=== PATIENT | male | born 1955 | race Caucasian/White ===

== ENCOUNTER 2018-08-13 17:42 | Inpatient (IN) | payer SELFPAY ==
[2018-08-13] VITALS (15 sets, daily range): BP systolic 124–209; BP diastolic 98–126; PULSE 69–101; RESP 13–97; TEMP 36.5–37.2; O2SAT 93–99; BMI 29.8; BMI 31.3
--- NOTE | 2018-08-13 17:50 | RAD_ITS ---
STUDY: X-RAY CHEST REASON FOR EXAM: Male, 62 years old. Chest pain and pressure. TECHNIQUE: Portable chest. COMPARISON: None. FINDINGS: The lungs are clear and expanded. There is no demonstrated pleural abnormality. Normal size heart. Normal mediastinum and nga. Normal visualized pulmonary arteries. Normal visualized aortic arch and descending thoracic aorta. Normal visualized thoracic spine. Normal visualized ribs, clavicles, and shoulders. There is no demonstrated abnormality of the visualized soft tissue structures of the upper abdomen. RAD/Chest 1 View (Portable) IMPRESSION: Normal x-ray examination of the chest. Electronically Signed: Sapphire Britton MD at 18:18 EDT Tel , Service support ,
[2018-08-13] MEDS: TICAGRELOR 90 MG TABLET 180 MG PO (18:00)
[2018-08-13] MEDS: Aspirin 81 MG TAB.CHEW 324 MG PO (18:00)
[2018-08-13] MEDS: Heparin Injection (Vial) 5,000 UNIT/ML VIAL 4000 UNIT IV (18:00)
--- NOTE | 2018-08-13 18:01 | EKG12_ITS ---
Test Reason : CHEST PAIN Blood Pressure : / mmHG Vent. Rate : 085 BPM Atrial Rate : 085 BPM P-R Int : 154 ms QRS Dur : 100 ms QT Int : 366 ms P-R-T Axes : 059 016 003 degrees QTc Int : 435 ms Normal sinus rhythm Low voltage QRS Anteroseptal infarct , possibly acute ACUTE VA / STEMI Abnormal ECG Confirmed by GILDA FOY, CHERIE ([id number]), map editor ROHAN JOHNSON ([id number]) on 08/15/2018 3:24:26 PM Referred By: Belle Ag Confirmed By:CHERIE VO MD
--- NOTE | 2018-08-13 18:05 | ED.VISSUMM ---
- ER Visit Summary Date of Service: 08/13/18 Chief Complaint: Chest pain History of Present Illness: The patient is a 62 M presenting with chest pain. Patient states it started 1 hour ago while at work. He states he does exert himself while at work. He has had nausea and vomiting. He complains of intermittent diaphoresis. He has shortness of breath. He states the pain is midsternal and radiates to his left arm. He states he had 3 shorter episodes of chest pain which were not as severe earlier in the week. He has a history of hypertension. He is not a smoker. His father had an PR at age 60. Physical Examination: Vitals are stable. Patient is afebrile. Alert no acute distress. HEENT exam is unremarkable. Neck is supple. Lungs are clear and equal bilaterally. Heart is regular rate and rhythm. Abdomen is soft nontender nondistended. Extremities are unremarkable. Skin is warm and dry. No focal neurologic deficit. Remainder of exam is unremarkable. Emergency Department Course and Treatment: Patient was given aspirin on arrival. EKG shows ST elevation anterior laterally with inferior depression. He was given heparin and Brilinta. Discussed with Dr. Ag, patient will be taken to the cardiac Manager Site. Disposition: Admission Impression: STEMI This note was generated with [employer] dictation software. It may contain incorrect words, spelling, and punctuation that were not noted in review of the chart prior to signing ED Disposition - Plan for ED Patient: Chief Complaint: Chest Pain Referrals: Richy Bucio [Primary Care Provider] -
[2018-08-13] MEDS: Morphine 4 MG/ML Syringe IV (18:07)
[2018-08-13] MEDS: Ondansetron 4 MG/2 ML Vial IV (18:07)
--- NOTE | 2018-08-13 18:08 | ED.DCSUM_ITS ---
- ER Visit Summary Date of Service: 08/13/18 Chief Complaint: Chest pain History of Present Illness: The patient is a 62 M presenting with chest pain. Patient states it started 1 hour ago while at work. He states he does exert himself while at work. He has had nausea and vomiting. He complains of interm ittent diaphoresis. He has shortness of breath. He states the pain is midsternal and radiates to his left arm. He states he had 3 shorter episodes of chest pain which were not as severe earlier in the week. He has a history of hypertension. He is not a smoker. His father had an PA at age 60. Physical Examination: Vitals are stable. Patient is afebrile. Alert no acute distress. HEENT exam is unremarkable. Neck is supple. Lungs are clear and equal bilaterally. Heart is regular rate and rhythm. Abdomen is soft nontender nondistended. Extremities are unremarkable. Skin is warm and dry. No focal neurologic deficit. Remainder of exam is unremarkable. Emergency Department Course and Treatment: Patient was given aspirin on arrival. EKG shows ST elevation anterior laterally with inferior depression. He was given heparin and Brilinta. Discussed with Dr. Ag, patient will be taken to the cardiac Salon Leader. Disposition: Admission Impression: STEMI This note was generated with [employer] dictation software. It may contain incorrect words, spelling, and punctuation that were not noted in review of the chart prior to signing ED Disposition - Plan for ED Patient: Chief Complaint: Chest Pain Referrals: Richy Bucio [Primary Care Provider] -
[2018-08-13 18:09] LABS: Absolute Lymphocyte Count 2.13 X10^3/ul (0.83-4.51); Absolute Neutrophil Count 7.2 X10^3/uL (2.0-7.7); Basophil# 0.03 X10^3/uL; Basophil% 0.3 % (0-1); Eosinophil# 0.11 X10^3/uL; Eosinophils% 1.1 % (0-5); Hematocrit 47.7 % (40-54); Lymphocyte # 2.13 X10^3/ul (4.0); Lymphocyte % 20.7 % (19-41); Mean Corp Hgb Conc 33.5 g/gl (32-36); Mean Corpuscular Hgb 30.4 pg (27.0-32.0); Mean Corpuscular Volume 90.5 fL (80-94); Monocyte# 0.77 X10^3/uL; Monocyte% 7.5 % (0-10); Neutrophil # 7.22 X10^3/uL (2.7-7.7); Neutrophil % 70.3 % (47-70); Platelet Count 278 K/mm3 (150-450); RBC Distribution Width CV 13.2 % (11.6-14.6); RBC Distribution Width SD 43.2 fl (35.1-43.9); Red Blood Count 5.27 M/mm3 (4.6-6.2); White Blood Count 10.3 K/mm3 (4.4-11.0)
[2018-08-13 18:10] LABS: POSITIVE COUNT NO; POSITIVE DIFFERENTIAL NO; POSITIVE MORPHOLOGY NO
--- NOTE | 2018-08-13 18:14 | NURSING ---
DR STEVE IN ROOM
[2018-08-13 18:17] LABS: International Normalized Ratio 0.9; Prothrombin Time (Protime)PT. 12.6 SECONDS (11.7-14.9)
[2018-08-13 18:18] LABS: Partial Thromboplast Time 27.5 Seconds (24.1-36.2)
--- NOTE | 2018-08-13 18:27 | CON.PCM_ITS ---
Problem List (1) STEMI (ST elevation myocardial infarction) Status: Acute Reason for Consult Date of Consultation: 08/13/18 History of Present Illness: The patient is a 62 year old M with past medical history significant for hypertension. Noncompliant with medications for the last 6 months. Patient presented to the emergency room with complaints of anterior chest discomfort radiating to the back. 1 hour duration. Shortness of breath initially. P resently no shortness of breath. No nausea or vomiting. EKG done in the emergency room showed changes consistent with acute anterolateral myocardial infarction. A STEMI alert was called. Per patient, he has had a few episodes of chest discomfort the last week. According to him, those episodes lasted 10-15 minutes and resolved on their own. Denies any exertional angina. However for the past few days, he has been feeling increasingly tired. No orthopnea or PND. [] Past Medical History Allergies/Adverse Reactions: Allergies No Known Allergies Allergy (Verified 08/13/18 17:58) Home Medications: Ambulatory Orders Medication Instructions Recorded NK 08/13/18 Smoking Status: Never smoker Review of Systems - Review of Systems General: Denies: Fever, Fatigue, Malaise, Anorexia, Weight Loss HEENT: Denies: Head Aches Cardiovascular: Reports: Chest Discomfort at Rest, Shortness of Breath. Denies: Orthopnea, PND Gastrointestinal: Denies: Indigestion, Abdominal Discomfort, Hematemesis, Melena Neurological: Denies: History of TIA, History of CVA Endocrine: Denies: Heat Intolerance, Cold Intolerance Hematologic/ Lymphatic: Denies: Easy Brusing, Easy Bleeding Subjectve: Appears mildly anxious Objective: Vital Signs Temp Pulse Resp BP Pulse Ox 98.9 F 85 18 184/111 H 93 08/13/18 17:43 08/13/18 18:18 08/13/18 17:59 08/13/18 18:18 08/13/18 18:11 Oxygen Flow Rate (L/min) 2 Oxygen Delivery Method Nasal Cannula Weight: 99.79 kg Body Mass Index (BMI) 29.8 General: Awake, Alert, Oriented x 3 HEENT: Atraumatic, Normocephalic Oral: Moist Mucosa Neck: Supple, No JVD Lungs: Diminished Eugenio Bases Cardiovascular: Regular Rhythm, Normal S1, Normal S2 Vascular: No Carotid Bruits Abdomen: Bowel Sounds Present, Soft Neurological: No Focal Motor or Sensory Deficit 08/13/18 17:45: WBC 10.3, RBC 5.27, Hgb 16.0, Hct 47.7, MCV 90.5, MCH 30.4, MCHC 33.5, RDW 13.2, RDW Differential 43.2, Plt Count 278, MPV 10.0, Immature Gran % (Auto) 0.100, Neut % (Auto) 70.3 H, Lymph % (Auto) 20.7, [place] % (Auto) 7.5, Eos % (Auto) 1.1, Baso % (Auto) 0.3, Absolute Neuts (auto) 7.2, Total Counted Not Reportable 08/13/18 17:45: PT 12.6, INR 0.9, APTT 27.5 Rhythm: Normal sinus rhythm EKG: EKG shows normal sinus rhythm. Changes consistent with acute anterolateral myocardial infarction are noted ECHO: Stress Test: Cardiac Cath: PCI: CT Surgery: Holter monitor: EPS: PPM: CXR: Chest CT Scan: Assessment/Plan 1. ST elevation myocardial infarction. Recommend emergent coronary angiography with possible revascularization. Risks benefits and alternatives were explained to the patient. He understands and wishes to proceed. 2. Loaded with aspirin and ticagrelor. 3. Start on nitroglycerin 4. Hypertension. Uncontrolled. Start on nitroglycerin. 5. Lipid status unknown. Will start on statins 6. Counseled regarding the importance of compliance with medications Further recommendations will follow results of cardiac catheterization
[2018-08-13 18:31] LABS: Anion Gap 6 (5-15); BUN 13 mg/dL (7-18); BUN/Creat Ratio 11.5 RATIO (10-20); Calcium,Total 9.2 mg/dL (8.5-10.1); Chloride 102 mmol/L (98-107); Creatinine, Serum 1.13 mg/dL (0.70-1.30); EST Glomerular Filtration Rate 70 mL/min (>60); Est Glom Filt Rate - Afr Amer 85 mL/min (>60); Glucose 156 mg/dL (74-106); Sodium Level 137 mmol/L (136-145)
[2018-08-13 19:56] LABS: ACT Activated Clotting Time 147 sec (74-137)
[2018-08-13 19:56] LABS: ACT Activated Clotting Time 274 sec (74-137)
--- NOTE | 2018-08-13 20:09 | ECHOD_ITS ---
Reason For Study: S/P NE Procedure This was a 2D Doppler, Color Flow transthoracic echocardiogram. Exam performed portable in patient room. Left Ventricle Normal LV size. Moderate concentric left ventricular hypertrophy. The estimated ejection fraction is 53 %. Mild to moderate segmental systolic dysfunction (see wall motion). Stage 1 diastolic dysfunction. Mid-Anterior : Hypokinetic. Mid-anteroseptal : Mildly hypokinetic. Grady : Severely Hypokinetic. The rest of the wall segments are normal. Right Ventricle Normal RV size. Normal systolic function. Atria Normal left atrium. Normal right atrium. Mitral Valve Normal mitral valve. Tricuspid Valve Normal tricuspid valve. Mild (1+) tricuspid valve insufficiency. Pulmonary artery systolic pressure is 22 mmHg. Aortic Valve Trisinus/trileaflet aortic valve. Mild focal aortic valve calcification. Pulmonic Valve Normal pulmonic valve. Great Vessels Normal aortic root. The pulmonary artery is normal size. Normal inferior vena cava. Pericardium/Pleural No pericardial effusion. MMode/2D Measurements & Calculations LVIDd: 5.3 cm IVSd: 1.5 cm Ao root diam: 3.8 cm LVIDs: 3.7 cm LVPWd: 1.5 cm LA dimension: 4.2 cm RVDd: 3.0 cm FS: 29.8 % LAV(MOD-bp): 38.0 ml LA A4 area: 14.7 cm2 RA A4 area: 16.1 cm2 LAV(MOD-bp) Indexed: 17.2 ml/m2 LAV(MOD-sp2): 41.4 ml LAV(MOD-sp4): 34.2 ml Time Measurements MV dec time: 0.21 sec Doppler Measurements & Calculations MV E max refugio: 51.4 cm/sec Lat Peak E' Refugio: 6.2 cm/sec Med Peak E' Refugio: 5.9 cm/sec MV A max refugio: 69.9 cm/sec E/E' lat: 8.3 E/E' med: 8.8 MV E/A: 0.74 Ao V2 max: 131.8 cm/sec LV V1 max: 114.9 cm/sec TR max refugio: 210.7 cm/sec Ao max P.0 mmHg LV V1 max P.3 mmHg TR max P.8 mmHg Interpretation Summary Normal LV size. Moderate concentric left ventricular hypertrophy. The estimated ejection fraction is 53 %. Mild to moderate segmental systolic dysfunction (see wall motion). Stage 1 diastolic dysfunction. Pulmonary artery systolic pressure is 22 mmHg. Ordering Physician: Belle Ag Referring Physician: THOMAS YAN Performed By: Myriam Corado RDCS, RVT
[2018-08-13] MEDS: 0.9% Normal Saline 1,000 ML 75 ML IV (20:15)
--- NOTE | 2018-08-13 20:40 | HP.PCM_ITS ---
Problem List (1) STEMI (ST elevation myocardial infarction) Status: Acute History of Present Illness Date of Admission: 08/13/18 Chief Complaint: chest pain The patient is a 62 year old M with a PMH of HTN (noncompliant with his meds). He was admitted with a complaint of chest pain for the past few days. Pain was pressurelike, with associated diaphoresis, dizziness and lightheadedness. He had had such pain several times this week but did not think much of it and thought it would go away on its own. However pain recurred today as he was leaving work and worsened when he got home. He therefore decided to bring himself to the ED where he was found to have acute ST elevation WI in the anterior lateral leads. He he was emergently rushed to the laundry laborer where he was found to have total occlusion of the LAD and had a drug-eluting stent placed in the proximal and mid LAD. Patient was seen and examined after he had the stents put in. He had no complaints and felt well and denied any fever or chills, any chest pain, shortness of breath, any abdominal pain, any diarrhea vomiting..[] Past Medical History Allergies No Known Allergies Allergy (Verified 08/13/18 17:58) Home Medications: Ambulatory Orders Medication Instructions Recorded NK 08/13/18 Surgical History: no surgical history Psychiatric History: No pertinent psych hx Lives: Spouse/ Significant Other Smoking Status: Never smoker Tobacco Use: Non-smoker Alcohol: None Drugs: Marijuana - *Family History Paternal History Items: High Cholesterol, Heart Disease Sibling History Items: High Cholesterol, Heart Disease Review of Systems Constitutional: Denies: Chills, Fever, Malaise, Weakness, Weight Change Eyes: Denies: Blurred vision HEENT: Denies: Head Aches, Sinus Congestion, Sinus Drainage Cardiovascular: Reports: Light Headedness. Denies: Chest Pain - chest pain now resolved, Chest Pressure, Chest Tightness, Edema, Palpitations Respiratory: Denies: Cough, Pleuritic Pain, Shortness of Breath, Shortness of breath at rest, Sputum production Gastrointestinal: Denies: Abdominal Pain, Nausea, Vomiting Genitourinary: Denies: Dysuria Musculoskeletal: Denies: Joint Pain, Joint Tenderness Skin: Denies: Rash, Wounds Neurological: Denies: Numbness, Tingling, Focal weakness Psychiatric: Denies: Anxiety, Depression, Homicidal Ideations, Suicidal Ideations Hematologic/ Lymphatic: Denies: Easy Bruising, Easy Bleeding VTE Information - Inpt Only VTE Present on Admission: No VTE Mechan Device Prophylaxis: None VTE Pharm Prophylaxis ordered?: Yes Patient Problems: Active and Suspected Problems (Last Updated 08/13/18 @ 18:25 by Belle gA MD) STEMI (ST elevation myocardial infarction) (Acute) - Physical Exam General: Alert, Oriented x3, Cooperative, No apparent distress HEENT: Atraumatic, PERRLA, EOMI, Normocephalic Oral: Moist Mucosa Neck: Supple, No JVD, Negative Carotid Bruits Lungs: Clear to auscultation, Normal air movement, No rhonchi, No wheeze, No rales Cardiovascular: Regular rate, Regular Rhythm, Normal S1, Normal S2, No murmurs Abdomen: Bowel Sounds Present, Soft, Non Tender, Non-Distended, No Hepato- splenomegaly Extremities: No clubbing, No cyanosis, No edema, Capillary Refill Less than 3 Seconds, - - cath site at right radial area with compression dressing Skin: No rashes, No breakdown Musculoskeletal: No Tenderness to Palpation of Joints or Extremities Lymphatic: No Cervical, Supraclavicular, or Inguinal Adenopathy Neurological: Cranial nerves II-XII grossly intact, Neuro grossly intact, Motor Exam 5/5 strength throughout Psych/Mental Status: Normal Affect, Appropriate, Alert and oriented to time, place, person, mood and affect Vital Signs Temp Pulse Resp BP Pulse Ox 98.9 F 85 18 184/111 H 93 08/13/18 17:43 08/13/18 18:18 08/13/18 17:59 08/13/18 18:18 08/13/18 18:11 Oxygen Flow Rate (L/min) 2 Oxygen Delivery Method Nasal Cannula Weight: 231 lb 0.711 oz Body Mass Index (BMI) 31.3 Laboratory Tests Past 24 Hrs 08/13/18 08/13/18 08/13/18 17:45 17:45 17:45 WBC 10.3 RBC 5.27 Hgb 16.0 Hct 47.7 MCV 90.5 MCH 30.4 MCHC 33.5 RDW 13.2 RDW Differential 43.2 Plt Count 278 MPV 10.0 Immature Gran % (Auto) 0.100 Neut % (Auto) 70.3 H Lymph % (Auto) 20.7 [place] % (Auto) 7.5 Eos % (Auto) 1.1 Baso % (Auto) 0.3 Absolute Neuts (auto) 7.2 Absolute Lymphs (auto) 2.13 Total Counted Not Reportable PT 12.6 INR 0.9 APTT 27.5 Activated Clotting Time Sodium 137 Potassium 4.0 Chloride 102 Carbon Dioxide 29.0 Anion Gap 6 BUN 13 Creatinine 1.13 Estim Creat Clear Calc 76.30 Est GFR (MDRD) Af Amer 85 Est GFR (MDRD) Non-Af 70 BUN/Creatinine Ratio 11.5 Glucose 156 H Calcium 9.2 Troponin I 1.600 H* 08/13/18 08/13/18 18:42 19:46 WBC RBC Hgb Hct MCV MCH MCHC RDW RDW Differential Plt Count MPV Immature Gran % (Auto) Neut % (Auto) Lymph % (Auto) [place] % (Auto) Eos % (Auto) Baso % (Auto) Absolute Neuts (auto) Absolute Lymphs (auto) Total Counted PT INR APTT Activated Clotting Time 147 H 274 H Sodium Potassium Chloride Carbon Dioxide Anion Gap BUN Creatinine Estim Creat Clear Calc Est GFR (MDRD) Af Amer Est GFR (MDRD) Non-Af BUN/Creatinine Ratio Glucose Calcium Troponin I Diagnostic Data Chest X-Ray 08/13/18 17:50 IMPRESSION: Normal x-ray examination of the chest. Electronically Signed: Sapphire Britton MD at 18:18 EDT Tel , Service support , Assessment/Plan All Active Problems (Last Updated 08/13/18 @ 18:25 by Belle Ag MD) STEMI (ST elevation myocardial infarction) (Acute) 62 y/o male admitted with a complaint of chest pain 1. STEMI s/p stents to LAD x 2 * today is POD 0. admitted with severe pressure like chest pain, and found to have anterolateral STEMI * troponin was 1.6 on admisison * on aspirin 81mg daily, coreg 3.125mg bid, lisinopril 5mg daily and SL nitroglycerin prn as well as brilinta 90 mg bid * on atorvastatin 40mg qhs * cardiology on board 2. Hypertension * has not been compliant with his meds; doesnt remember what medication he was on * started on PO carvedilol 3.125mg bid and lisinopril 5mg daily * 3. Hyperlipidemia: started on atorvastatin. check lipid panel DVT prophylaxis; SCDs; received bolus of heparin in ED prior to going for cath. To start heparin for DVT prophylaxis tomorrow Code status: full code. * Patient counseled about differences between DNR CCA, DNR CCA and full code. Patient elects to be full code. * Total face to face time 17 mins Code Visit Inpatient E&M: 50788 Init Hosp L3 Procedures: 65829 Advncd Care Plan 30 Min
[2018-08-13] MEDS: TICAGRELOR 90 MG TABLET PO (21:53)
[2018-08-13] MEDS: Atorvastatin Calcium 10 MG Tablet 5 MG PO (21:53)
[2018-08-13] MEDS: Carvedilol 3.125 MG TABLET PO (21:53)
[2018-08-13] MEDS: Lisinopril 5 MG Tablet PO ×2 (22:42→23:27)
[2018-08-14] VITALS (27 sets, daily range): BP systolic 109–164; BP diastolic 69–113; PULSE 70–95; RESP 11–30; TEMP 36.6–37.2; O2SAT 91–97
[2018-08-14] MEDS: hydrALAZINE 20 MG/ML Vial 10 MG IV (01:05)
[2018-08-14] MEDS: 0.9% NaCl Peripheral Flush Adult/Peds IV (01:05)
[2018-08-14 04:22] LABS: Hematocrit 43.3 % (40-54); Hemoglobin 14.9 g/dl (13.0-16.5); Mean Corp Hgb Conc 34.4 g/gl (32-36); Mean Corpuscular Hgb 30.8 pg (27.0-32.0); Mean Corpuscular Volume 89.6 fL (80-94); Mean Platelet Vol. 9.5 fl (6.2-12.0); Platelet Count 257 K/mm3 (150-450); RBC Distribution Width CV 13.3 % (11.6-14.6); RBC Distribution Width SD 43.3 fl (35.1-43.9); Red Blood Count 4.83 M/mm3 (4.6-6.2); White Blood Count 11.7 K/mm3 (4.4-11.0)
[2018-08-14 04:46] LABS: Scan Indicated on CBC? Y/N NO
[2018-08-14 04:51] LABS: ALB/GLOB Ratio 0.9 RATIO (0.9-2.4); AST(SGOT) 186 U/L (15-37); Alanine Aminotransfer ALT/SGPT 44 U/L (16-61); Albumin, Serum 3.3 g/dL (3.2-5.0); Alkaline Phosphatase 76 U/L (45-117); Anion Gap 10 (5-15); BUN 8 mg/dL (7-18); Calcium,Total 8.5 mg/dL (8.5-10.1); Chloride 101 mmol/L (98-107); Cholesterol 169 mg/dL (200); EST Glomerular Filtration Rate 105 mL/min (>60); Est Glom Filt Rate - Afr Amer 127 mL/min (>60); Estimated Creatinine Clearance 107.78 ml/min; Globulin 3.8 g/dL (2.2-4.2); Glucose 150 mg/dL (74-106); High Density Lipoprotein 28 mg/dL; Potassium 3.5 mmol/L (3.5-5.1); Protein, Total 7.1 g/dL (6.4-8.2); Sodium Level 139 mmol/L (136-145); Triglycerides 298 mg/dL; Very Low Density Lipoprotein 60 mg/dL (5-40)
--- NOTE | 2018-08-14 07:49 | PCM.PN.HOSP ---
Patient Problems: Active and Suspected Problems (Last Updated 08/13/18 @ 18:25 by Belle Ag MD) STEMI (ST elevation myocardial infarction) (Acute) Subjective: Patient was seen and examined in the ICU. Admitted with STEMI last night for having anterior chest discomfort for about an hour duration and about 2-3 times last week lasting for about 10-15 minutes. EKG showed anterior lateral wall acute TN consistent with STEMI. STEMI alert was called and subsequently patient had emergent cardiac cath and 2 stents were placed in LAD. Currently, patient denies chest discomfort/pain, shortness of breath or missed heartbeat/arrhythmia Vitals/I&O's: Vital Signs Temp Pulse Resp BP Pulse Ox 97.9 F 95 22 H 127/89 H 97 08/14/18 00:00 08/14/18 07:00 08/14/18 07:00 08/14/18 07:00 08/14/18 07:00 Oxygen Flow Rate (L/min) 1 Oxygen Delivery Method Nasal Cannula Weight: 229 lb 15.074 oz Body Mass Index (BMI) 31.3 Intake and Output for Last 24 Hours 08/12/18 08/13/18 08/14/18 23:59 23:59 23:59 Intake Total 1252 / 1252 Output Total 1525 / 1525 Balance -273 / -273 General: Alert, Oriented x3, Cooperative HEENT: Atraumatic, PERRLA, EOMI, Normocephalic Neck: Supple, No JVD, Negative Carotid Bruits Lungs: Clear to auscultation, Normal air movement Cardiovascular: Regular rate, Regular Rhythm, Normal S1, Normal S2, No murmurs Abdomen: Bowel Sounds Present, Soft, Non Tender, Non-Distended Extremities: No edema, Capillary Refill Less than 3 Seconds Skin: No rashes, No breakdown Musculoskeletal: No Tenderness to Palpation of Joints or Extremities, Arthritic Changes Neurological: Cranial nerves II-XII grossly intact Psych/Mental Status: Normal Affect, Appropriate Laboratory Results 08/13/18 17:45: WBC 10.3, RBC 5.27, Hgb 16.0, Hct 47.7, MCV 90.5, MCH 30.4, MCHC 33.5, RDW 13.2, RDW Differential 43.2, Plt Count 278, MPV 10.0, Immature Gran % (Auto) 0.100, Neut % (Auto) 70.3 H, Lymph % (Auto) 20.7, [place] % (Auto) 7.5, Eos % (Auto) 1.1, Baso % (Auto) 0.3, Absolute Neuts (auto) 7.2, Absolute Lymphs (auto) 2.13, Total Counted Not Reportable 08/13/18 17:45: PT 12.6, INR 0.9, APTT 27.5 08/13/18 17:45: Sodium 137, Potassium 4.0, Chloride 102, Carbon Dioxide 29.0, Anion Gap 6, BUN 13, Creatinine 1.13, Estim Creat Clear Calc 76.30, Est GFR (MDRD) Af Amer 85, Est GFR (MDRD) Non-Af 70, BUN/Creatinine Ratio 11.5, Glucose 156 H, Calcium 9.2, Troponin I 1.600 H* 08/13/18 18:42: Activated Clotting Time 147 H 08/13/18 19:46: Activated Clotting Time 274 H 08/14/18 04:10: WBC 11.7 H, RBC 4.83, Hgb 14.9, Hct 43.3, MCV 89.6, MCH 30.8, MCHC 34.4, RDW 13.3, RDW Differential 43.3, Plt Count 257, MPV 9.5 08/14/18 04:10: Sodium 139, Potassium 3.5, Chloride 101, Carbon Dioxide 28.0, Anion Gap 10, BUN 8, Creatinine 0.80, Estim Creat Clear Calc 107.78, Est GFR (MDRD) Af Amer 127, Est GFR (MDRD) Non-Af 105, BUN/Creatinine Ratio 10.0, Glucose 150 H, Calcium 8.5, Total Bilirubin 0.60, AST 186 H, ALT 44, Alkaline Phosphatase 76, Total Protein 7.1, Albumin 3.3, Globulin 3.8, Albumin/Globulin Ratio 0.9, Triglycerides 298 H, Cholesterol 169, LDL Cholesterol 81, VLDL Cholesterol 60 H, HDL Cholesterol 28 L Current Medications Aspirin (Ecotrin) 81 mg PO DAILY@0800 [facility] Atorvastatin Calcium (Lipitor) 5 mg PO QHS [facility] Last Admin: 08/13/18 21:53 Dose: 5 mg Atropine Sulfate () 0.5 mg IV UD PRN PRN Reason: HR <50 bpm Carvedilol (Coreg) 3.125 mg PO BID [facility] Last Admin: 08/13/18 21:53 Dose: 3.125 mg Nitroglycerin/Dextrose 25 mg/ (N/A) 250 mls @ 12 mls/hr IV .[id number] [facility] Last Admin: 08/13/18 20:15 Dose: Not Given Sodium Chloride () 1,000 mls @ 75 mls/hr IV .[id number] [facility] Stop: 08/14/18 09:14 Last Admin: 08/13/18 20:15 Dose: 75 mls/hr Sodium Chloride () 250 mls @ 15 mls/hr IV .[id number] PRN PRN Reason: SALINE FLUSH Influenza Virus Vaccine Quadrival (Fluarix/Fluzone) 0.5 ml IM .ONCE ONE Stop: 08/14/18 10:01 Lisinopril (Zestril) 5 mg PO DAILY [facility] Last Admin: 08/13/18 22:42 Dose: 5 mg Nitroglycerin (Nitrostat) 0.4 mg SUBLINGUAL Q5M PRN PRN Reason: CARDIAC/CHEST PAIN Sodium Chloride () 500 ml IV BOLUS PRN PRN Reason: VASO-VAGAL PROTOCOL Sodium Chloride () 5 - 30 ml IV UD PRN PRN Reason: SALINE FLUSH Last Admin: 08/14/18 01:05 Dose: 10 ml Ticagrelor (Brilinta) 90 mg PO BID [facility] Last Admin: 08/13/18 21:53 Dose: 90 mg Medical Necessity - Tobacco Use Smoking Status: Never smoker Tobacco Use: Non-smoker Assessment/Plan All Active Problems (Last Updated 08/13/18 @ 18:25 by Belle Ag MD) STEMI (ST elevation myocardial infarction) (Acute) This is a 62-year-old gentleman with history of hypertension was admitted for anterior chest pain consistent with anterolateral STEMI. STEMI alert was called and patient had emergent cath. 1. STEMI: Patient had emergent cath with PCI in LAD within time window of STEMI. No significant arrhythmia on the pvc monitor. On Brilinta, Coreg, lisinopril and atorvastatin. 2. Hypertension: Blood pressure was in the 150s-160. Currently, 127/89. Patient was on nitroglycerin drip discontinued. continue lisinopril. 3. Dyslipidemia: Triglyceride 298, HDL 28. LDL 81. on atorvastatin. 4. DVT prophylaxis: Bilateral SCDs. Resume heparin after 24 hours of cath Laboratory Results 08/14/18 04:10: WBC 11.7 H, RBC 4.83, Hgb 14.9, Hct 43.3, MCV 89.6, MCH 30.8, MCHC 34.4, RDW 13.3, RDW Differential 43.3, Plt Count 257, MPV 9.5 08/14/18 04:10: Sodium 139, Potassium 3.5, Chloride 101, Carbon Dioxide 28.0, Anion Gap 10, BUN 8, Creatinine 0.80, Estim Creat Clear Calc 107.78, Est GFR (MDRD) Af Amer 127, Est GFR (MDRD) Non-Af 105, BUN/Creatinine Ratio 10.0, Glucose 150 H, Calcium 8.5, Total Bilirubin 0.60, AST 186 H, ALT 44, Alkaline Phosphatase 76, Total Protein 7.1, Albumin 3.3, Globulin 3.8, Albumin/Globulin Ratio 0.9 Triglycerides 298 H, Cholesterol 169, LDL Cholesterol 81, VLDL Cholesterol 60 H, HDL Cholesterol 28 L Code Visit Inpatient E&M: 71089 Subs Hosp L3
[2018-08-14] MEDS: TICAGRELOR 90 MG TABLET PO ×2 (09:46→20:58)
[2018-08-14] MEDS: Aspirin E.C. 81 MG Tablet PO (09:46)
[2018-08-14] MEDS: Lisinopril 5 MG Tablet PO (09:47)
[2018-08-14] MEDS: Carvedilol 3.125 MG TABLET PO (09:47)
--- NOTE | 2018-08-14 10:00 | EKG12_ITS ---
Test Reason : AM EKG Blood Pressure : / mmHG Vent. Rate : 080 BPM Atrial Rate : 080 BPM P-R Int : 156 ms QRS Dur : 106 ms QT Int : 362 ms P-R-T Axes : 057 070 045 degrees QTc Int : 417 ms Normal sinus rhythm Low voltage QRS Poor R wave progression Anterior CT, age undetermined, cannot be excluded Confirmed by NIKKO FOY, SCAR ([id number]), editor newspaper ROHAN JOHNSON ([id number]) on 08/18/2018 12:03:46 PM Referred By: Belle Ag Confirmed By:SCAR EL MD
[2018-08-14] MEDS: HYDROCHLOROTHIAZIDE 12.5 MG CAPSULE PO (13:54)
[2018-08-14 13:59] LABS: Hemoglobin A1c 6.2 % (4.2-6.3)
--- NOTE | 2018-08-14 17:30 | CL.I_ITS ---
Patient Name: NEISHA RIDLEY Study Date: 08/13/2018 Performing: Belle Ag MD Ht: 72.04 inches 183 cm : 1955 Wt: 220.46 lbs 100 kg Age: 62 Gender: male BSA: 2.22 PROCEDURE(S) PERFORMED [id number]/COR/LV HK95-FME, ANGEL AND/OR PTCA, ARTERY OR GRAFT, SINGLE VESSEL CLINICAL PROFILE AND CO-MORBIDITIES Heart Failure: None CAD Presentations: STEMI. Symptom onset Date/Time: 08/13/2018 16:30:00 Time Estimated CONCLUSIONS 99% Mid LAD, 80% Prox LAD 50-60% Mid LCX 80% Mid RCA LVEF 35% RECOMMENDATIONS ASA Indefinitley Brilinta for at least 12 months Staged PCI to Mid RCA vs Medical management DESCRIPTION OF PROCEDURE The patient arrived to the procedure lab. The risks and benefits of the procedure as well as a full d escription of our services here and lack of surgical backup were fully explained to the patient and/o r their significant other prior to the catheterization. The Timeout was completed, verifying the sofia ect patient and procedure. The patient's procedural site was prepped and draped in the usual fashion. Local anesthetic was given subcutaneously to right radial region with Lidocaine 2%. Using a modified Seldinger technique, arterial access was obtained via the right radial artery, a 6Fr sheath was inse rted.. Right Coronary Artery selective angiography was then performed in multiple views using a 5 Fr . 4.0 Pledger catheter. Left Coronary Artery selective angiography was performed in multiple views usin g a 5 Fr. 4.0 Pledger catheter. Left Ventriculography was performed in NIEVES projection using a 5 Fr. Pig tail catheter. LV to AO pullback pressures were then recordedThe images were reviewed and options dis cussed. A decision was then made to proceed with an Intervention, IVUS or other adjunct procedure. XB 3.5 Guide catheter was inserted and engaged into the LCA. Runthrough Guide wire was advanced to th e LAD. 2.5 x 20 Emerge Balloon catheter was inserted. Balloon catheter was advanced across lesion in the LAD, mid. Angiogram performed pre balloon dilatation. PTCA balloon inflated at 10 atms for 18 sec s. PTCA balloon inflated at 10 atms for 18 secs. Angiogram performed post balloon dilatation. 3.0 x 3 8 Resolute Drug Eluting stent was inserted. Drug Eluting stent was removed intact, failed to cross le claudia Choice Extra Support Guide wire was inserted as a leo wire 3.0 x 38 Resolute Drug Eluting sten t was reinserted Angiogram performed pre stent deployment. Drug Eluting stent was advanced across the lesion in the LAD, mid. Angiogram performed post stent deployment. Angiogram performed post stent de ployment. 3.0 x 15 Resolute Drug Eluting stent was inserted. Drug Eluting stent was advanced across t he lesion in the LAD, proximal. Angiogram performed pre stent deployment. 3.0 x 20 NC Emerge Balloon catheter was inserted. Balloon catheter was advanced across lesion in the LAD, mid. Angiogram perform ed pre balloon dilatation. Balloon catheter was repositioned to additional lesion in the LAD, proxima l. Angiogram performed post balloon dilatation. 3.5 x 8 NC Emerge Balloon catheter was inserted. Ball oon catheter was advanced across lesion in the LAD, proximal. Angiogram performed post balloon dilata tion. The arterial sheath was pulled and a TR Band was applied for hemostasis CORONARY ANGIOGRAPHY LEFT HEART ASSESSMENT Left Ventricular Ejection Fraction: by LV Gram 35 % LVEDP: 12 mmHg LEFT MAIN: Angiographically normal LEFT ANTERIOR DECENDING ARTERY: 80% Prox LAD; 99% Mid LAD calcified CIRCUMFLEX ARTERY: MID CIRC: 50-60% Mid LCX RIGHT CORONARY ARTERY: Large vessel. 90% Mid disease VALVE FINDINGS: No Mitral Insufficency INTERVENTION INFORMATION LESION SITE: LAD (Mid) Lesion Complexity: High/C, culprit lesion: Yes Pre Stenosis: 99 % Pre intervention JEF flow: 3 PROCEDURE: Drug Eluting Stent with pre and post dilatation Post Stenosis: 0 % Post intervention JEF flow: 3 Lesion Devices: Cordis 6 Fr XB3.5 100cm Guide Catheter Hal Sci EMERGE MR 2.50x20 BALLOON Medtronic Resolute RX ANGEL 3.0x38 Terumo .014 Runthrough Extra Floppy 180cm straight Hal Sci .014 Choice Xtra Support wire 182cm Hal Sci .014 Choice Xtra Support wire 182cm Hal Sci NC EMERGE MR 3.00x20 BALLOON LESION SITE: LAD (Proximal) Lesion Devices: Cordis 6 Fr XB3.5 100cm Guide Catheter Terumo .014 Runthrough Extra Floppy 180cm straight Medtronic Resolute RX ANGEL 3.0x15 Hal Sci NC EMERGE MR 3.00x20 BALLOON COMPLICATIONS No Complications PROCEDURE MEDICATIONS Versed 1 mg IV Fentanyl 50 mcg IV Versed 1 mg IV Oxygen: 2 L/min via nasal cannula Angiomax Bolus 11.3 ml's 08/13/2018 18:54:45 Angiomax 26.3 ml's @ 08/13/2018 18:54:59 Nitro 200 mcg IC 08/13/2018 18:58:47 Nitro 200 mcg IC 08/13/2018 18:58:47 Verapamil 2.5mg, Ntg 100mcgs, given IA 08/13/2018 18:40:19 IV Bolus: .9 NaCl 500 ml total 08/13/2018 19:26:34 SUMMARY OF HEMODYNAMIC DATA Time AIR REST ECG 18:32:52 AO 117/96 (108) SA 18:43:12 LV 136/4, 10 19:40:31 LV 130/5, 12 19:40:38 LV 136/12, 20 19:42:26 LV 136/11, 19 19:42:33 LVp 141/6, 18 19:42:41 AOp 136/91 (112) 19:42:46 Signed By Belle Ag MD On 08/13/2018 20:12:42 Belle Ag MD
[2018-08-14] MEDS: Carvedilol 6.25 MG Tablet PO (20:58)
[2018-08-14] MEDS: Atorvastatin Calcium 40 MG Tablet PO (20:59)
[2018-08-15] VITALS (7 sets, daily range): BP systolic 139–141; BP diastolic 84–93; PULSE 79–84; RESP 16; TEMP 36.4–37.3; O2SAT 91–96; BMI 29.8
--- NOTE | 2018-08-15 08:18 | CRPHASE1_ITS ---
Patient Data/Charges Health Insurance Adjuster:: Belle Ag Refer Phase II:: Yes Phase II Referral:: [facility] Start Phase II:: After follow up visit with Cardiology Phase I Charge:: Level I - Education Risk Factors/Lifestyle Smoking Status: Current some day smoker Hx Obesity: Yes Height: 1.83 m Weight:: 99.79 kg BMI: 29.8 ETOH: Yes Laboratory Values: Cardiac Rehab Phase I Labs Hemoglobin A1c 6.2 % (4.2-6.3) 08/14/18 04:10 Triglycerides 298 mg/dL (-199) H 08/14/18 04:10 Cholesterol 169 mg/dL (200) 08/14/18 04:10 LDL Cholesterol 81 mg/dL (0-130) 08/14/18 04:10 HDL Cholesterol 28 mg/dL (40-) L 08/14/18 04:10 Issues Affecting Care:: None Knowledge of Condition:: Yes Learning Preferences: Verbal, Written, Audio/Visual, Demonstration Discharge/Home/Social Eval Marital Status: - Met briefly with pt who was to get an Echo, so info given, questions answered.
--- NOTE | 2018-08-15 08:21 | CRPH1.INSTRU ---
General Education CAD and cardiac anatomy and function:: Not instructed Explanation of diagnoses and procedures:: Not instructed Sign/Symptoms of PA:: Not instructed Antiplatelet therapy: Not instructed Proper use of NTG-SL: Not instructed Emergency procedures and activation of EMS: Not instructed Compliance of all prescribed medications: Not instructed - Pt was getting ready to have an Echo, so info given along with booklet, questions answered. Smoking Patient Nicotine/Smoking Risk Factors Are:: Illicit drug use Nicotine/Smoking Response Code:: Not instructed - Pt was getting ready to have an Echo, so info given along with booklet, questions answered. Dyslipidemia Patient Dyslipidemia Risk Factors Are:: Total Cholesterol, Triglycerides, HDL, LDL Recommendations Include:: Lipid profile provided Dyslipidemia Response Code:: Not instructed - Pt was getting ready to have an Echo, so info given along with booklet, questions answered. Overweight/Obesity Patient Overweight/Obesity Risk Factors Are:: Obesity - > or = 30 Overweight/Obesity:: Not instructed - Pt was getting ready to have an Echo, so info given along with booklet, questions answered. Hypertension Hypertension:: Not instructed - Pt was getting ready to have an Echo, so info given along with booklet, questions answered. Heart Disease Heart Disease Response Code:: Not instructed - Pt was getting ready to have an Echo, so info given along with booklet, questions answered. Diabetes Diabetes:: Not instructed - Pt was getting ready to have an Echo, so info given along with booklet, questions answered. Metabolic Syndrome Metabolic Syndrome Response Code:: Not instructed - Pt was getting ready to have an Echo, so info given along with booklet, questions answered. Sedentary Sedentary Response Code:: Not instructed - Pt was getting ready to have an Echo, so info given along with booklet, questions answered. Stress Stress Response Code:: Not instructed - Pt was getting ready to have an Echo, so info given along with booklet, questions answered.
--- NOTE | 2018-08-15 09:53 | PCM.PN.CARD ---
Subjectve: This is a late entry. Patient was seen and examined yesterday August 14, 2018. The note is being dictated today. Patient denied any complaints. No chest pains or shortness of breath. Objective: Vital Signs Temp Pulse Resp BP Pulse Ox 97.6 F L 84 16 139/84 H 91 08/15/18 05:17 08/15/18 06:58 08/15/18 05:17 08/15/18 05:17 08/15/18 07:50 Oxygen Flow Rate (L/min) 2 Oxygen Delivery Method Room Air Weight: 99.79 kg Body Mass Index (BMI) 31.3 Intake and Output for Last 24 Hours 08/13/18 08/14/18 08/15/18 23:59 23:59 23:59 Intake Total 1492 / 1492 Output Total 2400 / 2400 650 / 650 Balance -908 / -908 -650 / -650 General: Healthy Appearing, Awake, Alert, Oriented x 3 HEENT: Atraumatic Oral: Moist Mucosa Neck: Supple Lungs: Clear to auscultation Cardiovascular: Regular Rhythm, Normal S1, Normal S2 Vascular: - - Right radial pulse 2+. Abdomen: Bowel Sounds Present, Soft Extremities: No edema Neurological: No Focal Motor or Sensory Deficit Psych/Mental Status: Appropriate 08/14/18 04:10: Hemoglobin A1c 6.2 Rhythm: Normal sinus rhythm. EKG: ECHO: Stress Test: Cardiac Cath: PCI: CT Surgery: Holter monitor: EPS: PPM: CXR: Chest CT Scan: Medical Necessity - Tobacco Use Smoking Status: Current some day smoker Tobacco Use: Non-smoker Assessment/Plan 1. ST elevation myocardial infarction. Status post drug-eluting stent placement to the mid and proximal LAD. Stable. Asymptomatic. New aspirin. Will switch to clopidogrel in view of the fact that the patient does not have any prescription coverage. Continue beta blockers. 2. LV systolic dysfunction secondary to #1 above. Asymptomatic. Continue beta jeannine, JUSTIN inhibitor. Check 2D echocardiogram 3. Hypertension. Add thiazide diuretic. 4. Dyslipidemia. Patient statin was changed by pharmacy to atorvastatin. Recommend discharge home on lovastatin as the patient does not have prescription coverage and he could not previously afford his medications. Possible discharge home on Wednesday
--- NOTE | 2018-08-15 09:58 | PCM.PN.CARD ---
Subjectve: Denies any complaints. No chest pain or shortness of breath. Objective: Vital Signs Temp Pulse Resp BP Pulse Ox 99.1 F 83 16 141/93 H 94 08/15/18 09:56 08/15/18 09:56 08/15/18 09:56 08/15/18 09:56 08/15/18 09:56 Oxygen Flow Rate (L/min) 2 Oxygen Delivery Method Room Air Weight: 99.79 kg Body Mass Index (BMI) 31.3 Intake and Output for Last 24 Hours 08/13/18 08/14/18 08/15/18 23:59 23:59 23:59 Intake Total 1492 / 1492 Output Total 2400 / 2400 650 / 650 Balance -908 / -908 -650 / -650 General: Healthy Appearing, Awake, Alert, Oriented x 3 Oral: Moist Mucosa Neck: Supple Lungs: Clear to auscultation Cardiovascular: Regular Rhythm, Normal S1, Normal S2, No Murmurs, No Rubs Abdomen: Bowel Sounds Present, Soft Extremities: No edema Neurological: Motor Strength 5/5 Bilat 08/14/18 04:10: Hemoglobin A1c 6.2 Rhythm: Normal sinus rhythm EKG: ECHO: Stress Test: Cardiac Cath: PCI: CT Surgery: Holter monitor: EPS: PPM: CXR: Chest CT Scan: Medical Necessity - Tobacco Use Smoking Status: Current some day smoker Tobacco Use: Non-smoker Assessment/Plan 1. ST elevation myocardial infarction. Status post drug-eluting stent placement to the mid and proximal LAD. Stable. Asymptomatic. New aspirin. Will switch to clopidogrel in view of the fact that the patient does not have any prescription coverage. Continue beta blockers. 2. LV systolic dysfunction secondary to #1 above. Asymptomatic. Continue beta jeannine, JUSTIN inhibitor. Echocardiogram pending 3. Hypertension. Controlled 4. Dyslipidemia. Please change discharge statin to lovastatin in view of the patient's affordability cost leon 5. Hemoglobin A1c upper limit of normal. Follow as per internal medicine May discharge home today after echocardiogram done
--- NOTE | 2018-08-15 10:00 | EKG12_ITS ---
Test Reason : AM EKG Blood Pressure : / mmHG Vent. Rate : 082 BPM Atrial Rate : 082 BPM P-R Int : 150 ms QRS Dur : 104 ms QT Int : 348 ms P-R-T Axes : 063 075 068 degrees QTc Int : 406 ms Normal sinus rhythm Low voltage QRS Cannot rule out Anteroseptal infarct , age undetermined Abnormal ECG Confirmed by NIKKO FOY, SCAR ([id number]), purchase request editor ROHAN JOHNSON ([id number]) on 08/18/2018 11:37:47 AM Referred By: Belle Ag Confirmed By:SCAR EL MD
[2018-08-15] MEDS: Aspirin E.C. 81 MG Tablet PO (10:02)
[2018-08-15] MEDS: HYDROCHLOROTHIAZIDE 12.5 MG CAPSULE PO (10:02)
[2018-08-15] MEDS: Carvedilol 6.25 MG Tablet PO (10:02)
[2018-08-15] MEDS: TICAGRELOR 90 MG TABLET PO (10:02)
[2018-08-15] MEDS: Lisinopril 5 MG Tablet PO (10:02)
--- NOTE | 2018-08-15 11:25 | CASEMGMT ---
KAMILLA MISTRY assessment: Face to Face with patient for initial transition planning/care coordination assessment. RN FIDELIA introduced self and role at [facility], pt voices understanding and consents to assessment at this time. Pt is lying in bed in no distress at this time. Pt is A/O x4 at this time and answers all questions appropriately at this time. Care providers, pharmacy, and demographics verified at this time. PCP: Pt states does no currently have PCP as his doctor moved away. Pt provided with local PCP list at this time. Specialists: N/A Preferred Pharmacy: [facility] Insurance: Pt is listed with MMO/TPA as insurance but pt insists to this KAMILLA MISTRY that he does not have any insurance currently at this time. Call to [facility] to verify if admission review sent and she states that she had not sent yet but she will notify precert that pt states self pay and to see if they were able to verify insurance or not. Prescription Benefit: Pt states no insurance. Living Will/HPOA: Pt states does not have LW/HPOA and declines info at this time. LNOK: Loretta Dies, Living Arrangements: Pt states lives with in apt and states no concerns at home at this time. Transportation: Pt states drives self and states no transportation concerns at this time. DME/HHC: Pt states no current DME or need for any at this time. Pt states no hx HHC or SNF placement. Pt voice no concerns with going home at time of discharge. Referral to Manny ASHLEY for SP status, voices understanding. Pt voices no further concerns/needs at this time. 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 Advised pt to ask for CM if any further questions/concerns/needs arise, voices understanding. Plan: [place]AMILLA MISTRY
--- NOTE | 2018-08-15 11:25 | DCINST_ITS ---
- Discharge Diagnoses Current Active Problems: Current Active and Chronic Problems (Last Updated 08/13/18 @ 18:25 by Belle Ag MD) STEMI (ST elevation myocardial infarction) (Acute) You will use the following diet at home:: Calorie/Carbohydrate Controlled (specify 1200, 1400, etc) - 1800 ADA diet, Cardiac Discharge Activity: Return to Normal Activity Weight Bearing Status: Weight bearing as tolerated Call your doctor if you observe: Fever of 101 or Higher, Shortness of breath, Fainting spells, Chest pain, Increased palpitations (irregular heartbeat) Additional Instructions: Cardiac rehab after 1 week Allergies/Adverse Reactions: Allergies No Known Allergies Allergy (Verified 08/13/18 17:58) Medications to take at Discharge Aspirin E.C. [Ecotrin] 81 mg PO DAILY@0800 #30 tablet 08/15/18 Carvedilol [Coreg (Beta Joan)] 6.25 mg PO BID #60 tablet 08/15/18 Clopidogrel Bisulfate [Plavix] 75 mg PO DAILY #30 tablet 08/15/18 Hydrochlorothiazide 12.5 mg PO DAILY #30 capsule 08/15/18 Lisinopril [Zestril] 5 mg PO DAILY #30 tablet 08/15/18 Lovastatin [Altoprev] 40 mg PO DAILY #30 tab.er.24h 08/15/18 Metformin HCl 500 mg PO BID #60 tablet 08/15/18 Nitroglycerin [Nitrostat] 0.4 mg SUBLINGUAL Q5M PRN #30 tablet 08/15/18 The following prescriptions were given: Aspirin E.C. [Ecotrin] 81 mg PO DAILY@0800 #30 tablet Clopidogrel Bisulfate [Plavix] 75 mg PO DAILY #30 tablet Hydrochlorothiazide 12.5 mg PO DAILY #30 capsule Lisinopril [Zestril] 5 mg PO DAILY #30 tablet Lovastatin [Altoprev] 40 mg PO DAILY #30 tab.er.24h Nitroglycerin [Nitrostat] 0.4 mg SUBLINGUAL Q5M PRN #30 tablet PRN Reason: Cardiac/Chest Pain Carvedilol [Coreg (Beta Joan)] 6.25 mg PO BID #60 tablet Metformin HCl 500 mg PO BID #60 tablet Primary Care Physician: Richy Bucio [NON-STAFF] - Please follow up with your Primary Care Physician in: in 1-2 weeks Test Results: Test results from this visit will be discussed in further detail at your follow- up appointment, if applicable. Please Follow Up With: Sina Sandoval MD When: in 1-2 weeks
--- NOTE | 2018-08-15 11:25 | PCM.DC.SUM ---
Discharge Date and Diagnosis Date of Admission: 08/13/18 Date of Discharge: 08/15/18 - Primary Discharge Diagnosis Active and Suspected Problems (Last Updated 08/13/18 @ 18:25 by Belle Ag MD) STEMI (ST elevation myocardial infarction) (Acute) 2. Acute systolic and diastolic heart failure secondary to STEMI: Hospital Course and Treatment Summary of Care Provided: [] This is a 62-year-old gentleman with history of hypertension was admitted for anterior chest pain consistent with anterolateral STEMI. STEMI alert was called and patient had emergent cath. Patient was seen by automotive glazier Dr. Ag. 1. STEMI: Patient had emergent cath with PCI in LAD within time window of STEMI. On cardiac cath, EF by LV gram 35%. LAD proximal 80%, mid LAD 99% calcified. Mid circumflex 50-60%. Left main normal. Large vessel. Mid RCA 90%. no significant arrhythmia on the bus monitor. On Brilinta, Coreg, lisinopril and atorvastatin. 2. Acute systolic and diastolic heart failure: 2D echo was done shows estimated EF 53%, mild to moderate segmental systolic dysfunction. A stage I diastolic dysfunction. Mild TR. RVSP 22 mmHg. Normal mitral valve. Normal right and left atria. 2. Hypertension: Blood pressure was in the 150s-160. Currently, 127/89. Patient was on nitroglycerin drip discontinued. continue lisinopril. On HCTZ 3. Dyslipidemia: Triglyceride 298, HDL 28. LDL 81. on atorvastatin. 4. Prediabetes: A1c 6.2. Prescription given for Metformin. 1800 ADA diet recommended DVT prophylaxis: Bilateral SCDs. On heparin 5000 subcutaneous twice daily. Medication reconciliation done. Chart medication reconciliation done. Follow-up instructions completed. Patient does not have insurance for pharmacy coverage. [facility] And carvedilol. Patient discharged on aspirin, Plavix, HCTZ, lisinopril, lovastatin - Physical Exam General: Alert, Oriented x3, Cooperative HEENT: Atraumatic, PERRLA, EOMI, Normocephalic Neck: Supple, No JVD, Negative Carotid Bruits Lungs: Clear to auscultation, Normal air movement, No rhonchi, No wheeze Cardiovascular: Regular rate, Regular Rhythm, Normal S1, No murmurs Abdomen: Bowel Sounds Present, Soft, Non Tender Extremities: No edema, Capillary Refill Less than 3 Seconds Skin: No rashes, No breakdown Musculoskeletal: No Tenderness to Palpation of Joints or Extremities Neurological: Cranial nerves II-XII grossly intact Psych/Mental Status: Normal Affect, Appropriate Vital Signs Temp Pulse Resp BP Pulse Ox 99.1 F 79 16 141/93 H 94 08/15/18 09:56 08/15/18 10:59 08/15/18 09:56 08/15/18 09:56 08/15/18 09:56 Oxygen Flow Rate (L/min) 2 Oxygen Delivery Method Room Air Weight: 220 lb Body Mass Index (BMI) 31.3 Intake and Output for Last 24 Hours 08/13/18 08/14/18 08/15/18 23:59 23:59 23:59 Intake Total 1492 / 1492 Output Total 2400 / 2400 650 / 650 Balance -908 / -908 -650 / -650 Laboratory Tests Past 24 Hrs 08/14/18 04:10 Hemoglobin A1c 6.2 Home Medications: Medications to take at Discharge Aspirin E.C. [Ecotrin] 81 mg PO DAILY@0800 #30 tablet 08/15/18 Carvedilol [Coreg (Beta Joan)] 6.25 mg PO BID #60 tablet 08/15/18 Clopidogrel Bisulfate [Plavix] 75 mg PO DAILY #30 tablet 08/15/18 Hydrochlorothiazide 12.5 mg PO DAILY #30 capsule 08/15/18 Lisinopril [Zestril] 5 mg PO DAILY #30 tablet 08/15/18 Lovastatin [Altoprev] 40 mg PO DAILY #30 tab.er.24h 08/15/18 Metformin HCl 500 mg PO BID #60 tablet 08/15/18 Nitroglycerin [Nitrostat] 0.4 mg SUBLINGUAL Q5M PRN #30 tablet 08/15/18 Following Prescrptions Were Given to Patient: Aspirin E.C. [Ecotrin] 81 mg PO DAILY@0800 #30 tablet Clopidogrel Bisulfate [Plavix] 75 mg PO DAILY #30 tablet Hydrochlorothiazide 12.5 mg PO DAILY #30 capsule Lisinopril [Zestril] 5 mg PO DAILY #30 tablet Lovastatin [Altoprev] 40 mg PO DAILY #30 tab.er.24h Nitroglycerin [Nitrostat] 0.4 mg SUBLINGUAL Q5M PRN #30 tablet PRN Reason: Cardiac/Chest Pain Carvedilol [Coreg (Beta Joan)] 6.25 mg PO BID #60 tablet Metformin HCl 500 mg PO BID #60 tablet Primary Care Physician: Richy Bucio [NON-STAFF] - Medical Necessity - Tobacco Use Smoking Status: Current some day smoker Tobacco Use: Non-smoker Meaningful Use Info Meaningful Use Diagnoses (Choose all that apply): AMI, CHF - AMI Aspirin given w/in 24hrs of arrival?: Yes ASA at discharge?: Yes Statins at discharge?: Yes Enoch/ARB at discharge?: Yes Beta Joan at discharge?: Yes Done w/ Acute WI measure.: Yes - CHF ENOCH/ARB ordered at discharge?: Yes Documented LVEF (%): 53 Code Visit Inpatient E&M: 12359 Disch Hosp
[2018-08-15] MEDS: Clopidogrel Bisulfate 300 MG Tablet PO (11:30)
--- NOTE | 2018-08-15 12:00 | CASEMGMT ---
Patient told RN FIDELIA that he does not have insurance. SW spoke with patient and gave him a self pay packet including information on Kelsea Howe, [facility] financial assistance program, [employer], and a list of primary care doctors. All of his d/c meds are $4 at [facility] except for one. Nancy CHEUNG MSW
== END 2018-08-15 13:03 | disposition home or self-care (01) | DRG 246 ==
LOC: ED 18:04 → ICU 18:28 → PCU 08-14 23:03
PROVIDERS: Admitting Provider Internal Medicine; Emergency Provider Emergency Medicine; Referring Provider Internal Medicine Cardiovascular Disease; Visit Provider Internal Medicine
DX: I21.09 ST elevation (STEMI) myocardial infarction involving other coronary artery of anterior wall (principal); I50.41 Acute combined systolic (congestive) and diastolic (congestive) heart failure; E78.5 Hyperlipidemia, unspecified; I11.0 Hypertensive heart disease with heart failure; R73.03 Prediabetes; I25.10 Atherosclerotic heart disease of native coronary artery without angina pectoris; Z23 Encounter for immunization
CPT/HCPCS: 71045; 80048; 80053; 80061; 83036; 84484; 85025; 85027; 85347; 85610; 85730; 92941; 93005; 93306; 93458; 99152; 99153; 99285; J7030; Q9967; 90686; A4216; C1725; C1769; C1874; C1887; C1894; C9606; J0583; J2405

== ENCOUNTER → 2019-06-13 09:03 | Outpatient (CLI) | payer SELFPAY ==
[2018-08-15 08:21] VITALS: BMI 29.8
[2019-06-13 08:25] VITALS: BMI 30.6
[2019-06-13 10:01] LABS: AST(SGOT) 13 U/L (15-37); Alanine Aminotransfer ALT/SGPT 22 U/L (16-61); Albumin, Serum 3.8 g/dL (3.2-5.0); Alkaline Phosphatase 68 U/L (45-117); Bilirubin, Direct 0.15 mg/dL (0.00-0.30); Cholesterol 170 mg/dL (200); Globulin 3.6 g/dL (2.2-4.2); High Density Lipoprotein 31 mg/dL; Protein, Total 7.4 g/dL (6.4-8.2); Triglycerides 280 mg/dL; Very Low Density Lipoprotein 56 mg/dL (5-40)
== END ==
LOC: LAB 09:05
PROVIDERS: Family Provider Family Medicine; PCP Family Medicine; Referring Provider Physician Assistant Medical; Visit Provider Physician Assistant Medical
DX: E78.00 Pure hypercholesterolemia, unspecified (principal)
CPT/HCPCS: 36415; 80061; 80076

== ENCOUNTER → 2020-12-31 09:48 | Outpatient (CLI) | payer SELFPAY ==
[2018-08-15 08:21] VITALS: BMI 29.8
[2020-12-31 08:55] VITALS: BMI 31.0
[2020-12-31 11:35] LABS: AST(SGOT) 17 U/L (15-37); Alanine Aminotransfer ALT/SGPT 26 U/L (16-61); Albumin, Serum 3.9 g/dL (3.2-5.0); Alkaline Phosphatase 70 U/L (45-117); Cholesterol 227 mg/dL (200); High Density Lipoprotein 30 mg/dL; Protein, Total 7.9 g/dL (6.4-8.2); Triglycerides 539 mg/dL
== END ==
LOC: LAB 09:52
PROVIDERS: Referring Provider Internal Medicine Cardiovascular Disease; Visit Provider Internal Medicine Cardiovascular Disease
DX: E78.1 Pure hyperglyceridemia (principal)
CPT/HCPCS: 36415; 80061; 80076

== ENCOUNTER → 2020-12-31 09:53 | Outpatient (CLI) | payer SELFPAY ==
[2018-08-15 08:21] VITALS: BMI 29.8
[2020-12-31 08:55] VITALS: BMI 31.0
== END ==
PROVIDERS: Referring Provider Internal Medicine Cardiovascular Disease; Visit Provider Internal Medicine Cardiovascular Disease
DX: R69 Illness, unspecified (principal)

== ENCOUNTER → 2021-01-15 06:03 | Outpatient (CLI) | payer SELFPAY ==
[2018-08-15 08:21] VITALS: BMI 29.8
[2020-12-31 08:55] VITALS: BMI 31.0
== END ==
PROVIDERS: PCP Family Medicine; Referring Provider Internal Medicine Cardiovascular Disease; Visit Provider Internal Medicine Cardiovascular Disease
DX: I25.10 Atherosclerotic heart disease of native coronary artery without angina pectoris (principal); Z95.5 Presence of coronary angioplasty implant and graft
CPT/HCPCS: 78452; 93017; A9500; A4216

== ENCOUNTER → 2022-10-15 | Outpatient (CLI) | payer SELFPAY ==
[2018-08-15 08:21] VITALS: BMI 29.8
[2022-10-15 11:04] LABS: AST(SGOT) 18 U/L (15-37); Alanine Aminotransfer ALT/SGPT 28 U/L (16-61); Albumin, Serum 3.8 g/dL (3.2-5.0); Alkaline Phosphatase 68 U/L (45-117); Bilirubin, Direct 0.12 mg/dL (0.00-0.30); Cholesterol 173 mg/dL (200); Globulin 3.9 g/dL (2.2-4.2); High Density Lipoprotein 31 mg/dL; Protein, Total 7.7 g/dL (6.4-8.2); Triglycerides 339 mg/dL; Very Low Density Lipoprotein 68 mg/dL (5-40)
== END | disposition home or self-care (01) ==
LOC: LAB 09:23
PROVIDERS: PCP Family Medicine; Referring Provider Internal Medicine Cardiovascular Disease; Visit Provider Internal Medicine Cardiovascular Disease
DX: E78.1 Pure hyperglyceridemia (principal)
CPT/HCPCS: 36415; 80061; 80076